=== PATIENT | female | born 1990 | race African-American/Black ===

== ENCOUNTER 2016-08-26 13:08 | Emergency (ER) | payer OTHER ==
[~2016-08-26] VITALS: Ht 165.1 cm; Wt 74.8 kg
[2016-08-26] MEDS ORDERED: IV NS 0.9% 1,000 ML BAG IV ONE (13:30)
[2016-08-26] MEDS ORDERED: LIDOCAINE VISCOUS 2% UD 15 ML UDC MM ONE (13:30)
[2016-08-26] MEDS ORDERED: FAMOTIDINE/PF INJ 20 MG/2 ML VIAL IV ONE ×2 (13:30→13:40)
[2016-08-26] MEDS ORDERED: ONDANSETRON HCL/PF 4 MG/2 ML VIAL IVP ONE (13:30)
[2016-08-26] MEDS ORDERED: MAG HYDROX/AL HYDROX/SIMETH 30 ML UDC PO ONE (13:30)
[2016-08-26] MEDS ORDERED: MAG HYDROX/AL HYDROX/SIMETH 30 ML UDC ONE (13:39)
[2016-08-26] MEDS ORDERED: IV SET PRIMARY PUMP SET 1 EA INFUS.SET MC ONE (13:40)
[2016-08-26] MEDS ORDERED: ONDANSETRON HCL/PF 4 MG/2 ML VIAL ONE (13:40)
[2016-08-26] MEDS ORDERED: IV NS 0.9% 1,000 ML ONE (13:40)
[2016-08-26] MEDS ORDERED: LIDOCAINE VISCOUS 2% UD 15 ML UDC ONE (13:40)
[2016-08-26 13:49] LABS: ADD UA MICROSCOPIC NO; KETONES,URINE Negative (NEGATIVE); LEUKOCYTE ESTERASE ,URINE Negative (NEGATIVE)
[2016-08-26 13:50] LABS: BASOPHILS # (AUTO) 0.8 /CMM (0.0-0.2); BASOPHILS % (AUTO) 4.8 % (0.0-2.0); DIFF TOTAL % 100 %; EOSINOPHILS # (AUTO) 0.1 /CMM (0.0-0.7); EOSINOPHILS % (AUTO) 0.8 % (0.0-6.0); HEMATOCRIT 45 % (33-45); HEMOGLOBIN 14.9 g/dL (11.5-14.8); LYMPHOCYTES # (AUTO) 1.7 /CMM (0.8-4.8); LYMPHOCYTES % (AUTO) 10.9 % (20.0-44.0); MEAN CORPUSCULAR HEMOGLOBIN 28 PG (26.0-33.0); MEAN CORPUSCULAR HGB CONC 33 g/dl (31.0-36.0); MEAN CORPUSCULAR VOLUME 86 fL (82-100); MONOCYTES # (AUTO) 0.6 /CMM (0.1-1.30); MONOCYTES % (AUTO) 3.8 % (2.0-12.0); NEUTROPHILS # (AUTO) 12.5 /CMM (1.8-8.9); NEUTROPHILS % (AUTO) 79.7 % (43.0-81.0); PLATELET COUNT (AUTO) 267 /CMM (150-450); RED BLOOD CELL COUNT(AUTO) 5.27 MIL/uL (4.0-5.2); WHITE BLOOD COUNT (AUTO) 15.7 K/uL (4.3-11.0)
[2016-08-26 13:53] LABS: PREGNANCY TEST URINE QUAL NEGATIVE (NEGATIVE)
[2016-08-26 13:56] LABS: CALCIUM, SERUM 9.3 mg/dL (8.5-10.1); CREATININE 0.9 mg/dL (0.6-1.3); POTASSIUM 3.7 mmol/L (3.5-5.1)
[2016-08-26 14:01] LABS: INR 0.94 (0.87-1.13); PROTHROMBIN TIME 9.9 SECS (9.5-12.7)
[2016-08-26 14:08] LABS: ALBUMIN 3.9 g/dL (3.4-5.0); BILIRUBIN,DIRECT 0.1 mg/dL (0.0-0.2); BILIRUBIN,TOTAL 0.5 mg/dL (0.2-1.0); INDIRECT BILIRUBIN 0.4 mg/dL (0.0-1.1); TOTAL PROTEIN, SERUM 7.9 g/dL (6.4-8.2)
[2016-08-26] MEDS ORDERED: MORPHINE SULFATE INJ 2 MG/ML DISP.SYRIN IV ONE ×2 (15:00→16:30)
[2016-08-26] MEDS ORDERED: MORPHINE SULFATE INJ 2 MG/ML DISP.SYRIN ONE ×2 (15:03→16:26)
[2016-08-26] MEDS ORDERED: MORPHINE SULFATE INJ 4 MG/ML DISP.SYRIN ONE (16:26)
[2016-08-26 18:51] VITALS: BP 110/59
== END 2016-08-26 18:52 | disposition home or self-care (01) ==
LOC: ER 13:10
DX: K29.70 Gastritis, unspecified, without bleeding (principal); J45.909 Unspecified asthma, uncomplicated
CPT/HCPCS: 36415; 71010; 76705; 80048; 80076; 81001; 83690; 84703; 85025; 85730; 93005; 96361; 96374; 96375; 99285; A4606; J2270 ×2; J2405; J3490; J7030; Z7610; 81000-TC